=== PATIENT | female | born 1955 | race Caucasian/White ===

== ENCOUNTER 2016-10-30 17:27 | Emergency (ER) | payer MEDICARE ==
[~2016-10-30] VITALS: Ht 162.6 cm; Wt 174.6 kg
[2016-10-30 18:28] VITALS: BP 147/91
== END 2016-10-30 18:29 | disposition home or self-care (01) ==
LOC: ED 17:29
DX: S90.31XA Contusion of right foot, initial encounter (principal); W20.8XXA Other cause of strike by thrown, projected or falling object, initial encounter; Y92.009 Unspecified place in unspecified non-institutional (private) residence as the place of occurrence of the external cause
CPT/HCPCS: 99282; 99283

== ENCOUNTER → 2017-02-17 | Outpatient (CLI) | payer MEDICARE ==
[~2017-02-17] MED LIST: ACHYD1T PO; BENA40TA5 PO; CEPH-331 PO; CITA10TA4 PO; CITA20SO PO; CYCL10TA45 PO; FRSM40T PO; GLIM2TAB PO; HYDR-3702 PO; HYDR-3881 PO; IBUP100T6; INDA1.25 PO; METF500T4 PO; METFORMIN PO; METO25TA60 PO; MV,C1TAB15 PO; ONDAN4ODT PO; PRX20T PO; SULF-221 PO; SULF1TAB35 PO; TERB250T10 PO; no medications
[2017-02-17 13:28] LABS: BASOPHILS % (AUTO) 0 % (0-2); EOSINOPHILS # (AUTO) 0.1 10^3uL; EOSINOPHILS % (AUTO) 2 % (0-4); LYMPHOCYTES # (AUTO) 1.5 X10^3; MEAN CORPUSCULAR HEMOGLOBIN 28.7 PG (26.0-34.0); MEAN CORPUSCULAR HGB CONC 32.9 g/dL (31.0-37.0); MEAN CORPUSCULAR VOLUME 87 FL (80-100); MEAN PLATELET VOLUME 10.9 FL (6.0-9.5); MONOCYTES # (AUTO) 0.8 X10^3; MONOCYTES % (AUTO) 9 % (3-11); NEUTROPHILS # (AUTO) 5.7 X10^3; NEUTROPHILS % (AUTO) 70 % (51-67); PLATELET COUNT 179 10^3uL (150-450); WHITE BLOOD COUNT 8.17 10^3uL (4.0-11.0)
[2017-02-17 13:38] LABS: ALBUMIN 3.9 g/dL (3.4-5.0); ANION GAP 12.3 MEQ/L (3-15); CALCULATED IONIZED CALCIUM 3.9 mg/dL (3.8-4.6); TOTAL PROTEIN 7.6 g/dL (6.4-8.5)
== END ==
LOC: LAB 12:59
PROVIDERS: ATTEND Family Medicine
DX: E11.9 Type 2 diabetes mellitus without complications (principal); M25.562 Pain in left knee
CPT/HCPCS: 36415; 80053; 83036; 84550; 85025

== ENCOUNTER → 2017-02-18 | Outpatient (CLI) | payer MEDICARE ==
[2017-02-18 13:35] LABS: BILIRUBIN,URINE Negative (Negative); CLARITY,URINE Clear; COLOR,URINE Yellow; GLUCOSE, URINE (UA) 1+ (Negative); LEUKOCYTE ESTERASE ,URINE 1+ (Negative); UROBILINOGEN,URINE 0.2 mg/dL (0.2-1.0)
[2017-02-18 14:04] LABS: RBC,URINE 0-2 /HPF; URINE CENTRIFUGED VOLUME 12 mL
== END ==
LOC: LAB 12:59
PROVIDERS: ATTEND Family Medicine
DX: E11.9 Type 2 diabetes mellitus without complications (principal); R82.99 Other abnormal findings in urine
CPT/HCPCS: 81003; 81015; 82043; 87088